=== PATIENT | female | born 1975 | race Caucasian/White ===

== ENCOUNTER 2024-12-02 08:15 | Outpatient (CLI) | payer OTHER | END 2024-12-02 08:16 | disposition home or self-care (01) | LOC: CSHSLEEP 08:15 | PROVIDERS: ATTEND Internal Medicine Cardiovascular Disease | DX: G47.33 Obstructive sleep apnea (adult) (pediatric) (principal); G47.61 Periodic limb movement disorder | CPT/HCPCS: 95810 ==